=== PATIENT | female | born 1985 | race Caucasian/White ===

== ENCOUNTER 2017-01-12 11:15 | Inpatient (IN) ==
[2017-01-12] MEDS ORDERED: predniSONE 20 MG TABLET PO ONE (13:42)
[2017-01-12] MEDS ORDERED: Orphenadrine 60 MG/2 ML VIAL IM ONE (13:42)
[2017-01-12] MEDS ORDERED: *HR* Morphine 2 MG/ML SYRINGE IVP ONE (14:32)
[2017-01-12] MEDS ORDERED: Ondansetron ODT 4 MG TAB.RAPDIS SL ONE (14:32)
--- NOTE | 2017-01-12 14:32 | Emergency Department Note ---
Disposition Clinical Impression: Inability to walk Injury of spinal nerve root at S1 level Qualifiers: Encounter type: initial encounter Qualified Code(s): S34.22XA - Injury of nerve root of sacral spine, initial encounter Disposition: Admitted As Inpatient Condition: Good Referrals: Trace Donald DO [Primary Care Provider] - Forms: ED Satisfaction Letter Time of Disposition: 17:53 Back Pain HPI - General Chief Complaint: ED Back Pain/Injury Stated Complaint: Back injury Time Seen by Provider: 01/12/17 13:42 Source: patient Limitations: no limitations Nursing Notes Reviewed: Yes Vital Signs Reviewed: Yes - History of Present Illness HPI Narrative: 31 year old female with acute back pain states that she was giving her dog a haircut and bent over the wrong way and had increased acute lower back pain with numbness inot the iliotibial band of her right leg in addition to inability to bear weight due to pain and inability to walk because loss of sensation to the upper thigh and limited range of motion due to pain. Patient is tearful in the room and states that her lower back is killing her and that she cant even get up by herself to go urinate as requested. Patinet denies any previous surgeries to her back. DEnies fevers, urinary retnetion/incontinence, or sadddle paresthesia. - Related Data Home Medications Medication Instructions Recorded Confirmed Paroxetine [Paxil] 30 mg PO DAILY 01/12/17 01/12/17 Allergies Allergy/AdvReac Type Severity Reaction Status Date / Time No Known Allergies Allergy Verified 03/05/15 10:06 Constitutional: Denies: fever, chills, weakness, weight change Eyes: Denies: eye pain, eye discharge, vision change ENT ED: Denies: ear pain, throat pain, dental pain, hearing loss, epistaxis, congestion, dysphagia Cardiovascular: Denies: chest pain, palpitations, dyspnea on exertion, edema, syncope Respiratory: Denies: cough, dyspnea, wheezes, hemoptysis, stridor Gastrointestinal: Denies: abdominal pain, nausea, vomiting, diarrhea, constipation, hematemesis, melena, hematochezia Genitourinary: Denies: dysuria, frequency, hematuria, discharge Musculoskeletal: Reports: back pain. Denies: neck pain, arthralgia, myalgia Integumentary: Denies: rash, abrasion, lesions Neurological: Reports: weakness, numbness, paresthesias, abnormal gait. Denies : headache, confusion, vertigo Psychiatric: Denies: anxiety, depression, suicidal thoughts, homicidal thoughts , auditory hallucinations, visual hallucinations Endocrine: Denies: fatigue Hematological/Lymphatic: Denies: easy bleeding, easy bruising Allergic/Immunologic: Denies: facial swelling, urticaria Past Medical History - Past Medical History Medical history: Reports: diabetes Surgical history: Reports: , cholecystectomy Psychiatric history: Reports: anxiety - Social History Smoking Status: Current every day smoker Smokeless Tobacco Status: No Alcohol use: Reports: occasionally Drug use: Reports: none Physical Exam - General Limitations: no limitations General appearance: alert, other (tearful) - Head Head exam: atraumatic, normocephalic, normal inspection - Eye Eye exam: Present: normal appearance, PERRL, EOMI - Expanded Eye Exam Pupils: Left: reactive - ENT ENT exam: normal exam, normal oropharynx, mucous membranes moist - Expanded ENT Exam External ear exam: Present: normal external inspection Mouth exam: Present: normal external inspection Teeth exam: Present: normal inspection Throat exam: Present: normal inspection - Neck Neck exam: Present: normal inspection, full ROM, trachea midline - Chest Chest inspection: Present: normal inspection, symmetric chest wall rise - Respiratory Respiratory exam: Present: normal lung sounds bilaterally - Cardiovascular Cardiovascular exam: Present: normal rhythm, tachycardia, normal heart sounds - Abdominal Exam Abdominal exam: Present: soft, Non-Tender. Absent: tenderness, distention, guarding, rebound, rigidity - Extremities Exam Extremities exam: Present: normal inspection, full ROM. Absent: tenderness, pedal edema - Expanded Upper Extremity Exam Shoulder exam: Present: normal inspection, full ROM Arm exam: Present: normal inspection, full ROM Elbow exam: Present: normal inspection, full ROM Forearm/Wrist exam: Present: normal inspection, full ROM Hand exam: Present: normal inspection, full ROM Vascular exam: Normal: capillary refill, radial pulse - Expanded Lower Extremity Exam Hip/Pelvis exam: Present: normal inspection, full ROM Upper leg exam: Present: normal inspection, full ROM Knee exam: Present: normal inspection, full ROM Lower leg exam: Present: normal inspection, full ROM Ankle exam: Present: normal inspection, full ROM Foot/toe exam: Present: normal inspection, full ROM Neurovascular/Tendon exam: Absent: motor deficit, sensory deficit, tendon deficit Gait: unable to bear weight - Back Exam Back exam: Present: normal inspection, tenderness (lower lumbar), muscle spasm, paraspinal tenderness, vertebral tenderness, straight leg raise (R). Absent: full ROM - Neurological Exam Neurological exam: Present: alert, oriented X3 - Expanded Neurological Exam Patient oriented to: Present: person, place, time Speech: Present: fluid speech Cranial nerves: EOM function (II, III, IV, ): Normal, facial sensation (V): Normal, facial palsy (VII): Normal, gag reflex (IX): Normal, spinal accessory function (XI): Normal, tongue deviation (XII): Normal Cerebellar function: finger to nose: Normal Motor strength - LUE: 4/5 Motor strength - RUE: 4/5 Motor strength - LLE: 4/5 Motor strength - RLE: 3/5 Upper motor neuron exam: annalise neglect: Absent bilaterally, pronator drift: Absent bilaterally, Babinski sign: Absent bilaterally, sensory extinction: Absent bilaterally Sensory exam upper extremity: light touch: Normal, pin prick: Normal Sensory exam lower extremity: light touch: Normal, pin prick: Abnormal Right DTR: patellar (L): 2+, patellar (R): 1+, Achilles tendon (L): 2+, Achilles tendon (R): 2+ Coma Scale Eye Opening: Spontaneous Coma Scale Motor Response: Obeys Commands Coma Scale Verbal Response: Oriented Coma Scale Total: 15 - Psychiatric Psychiatric exam: Present: normal affect, normal mood - Skin Skin exam: Present: warm, dry, intact, normal color Course Course Narrative: XR shows some abnormal findings and it suggests a MR of the lumbar spine. We will continue with MR and likely admit ot azucena if Dr. Bello is willing to see erlin as consult (spine). morphine for pain control - Consultations Consultation #1: discussed case with ARNEL Schmidt and she has accepted patient to her service Time: 17:51 Vital Signs Temperature 98.1 F 01/12/17 11:19 Pulse Rate 122 01/12/17 11:19 Respiratory Rate 18 01/12/17 11:19 Blood Pressure 151/97 01/12/17 11:19 O2 Sat by Pulse Oximetry 100 01/12/17 11:19 Temperature 98.1 F 01/12/17 11:19 Pulse Rate 96 01/12/17 15:48 Respiratory Rate 16 01/12/17 15:48 Blood Pressure 121/73 01/12/17 15:48 O2 Sat by Pulse Oximetry 98 01/12/17 15:48 Oxygen Delivery Oxygen Delivery Room Air Back Pain/Injury - Lab Data Lab Results 01/12/17 01/12/17 Range/Units 15:06 15:06 Urine Color Yellow (Yellow) Urine Clarity Clear (Clear) Urine pH 6.0 (5.0-8.0) pH Units Ur Specific [place] 1.014 (1.010-1.025) Urine Protein Negative (Neg-Trace) mg/dL Urine Glucose (UA) 100 H (Normal) mg/dL Urine Ketones Negative (Negative) mg/dL Urine Blood Small H (Negative) Urine Nitrite Negative (Negative) Urine Bilirubin Negative (Negative) Urine Urobilinogen Normal (Normal) mg/dL Ur Leukocyte Esterase Negative (Negative) Urine Microscopic RBC 3-5 H (0-3) per hpf Urine Microscopic WBC 0-3 (0-3) per hpf Ur Squamous Epith Cells Few (None-Few) per lpf Urine Bacteria None Seen (None-Few) per hpf Hyaline Casts None Seen (None-Few) per lpf Ur Culture Indicated? NO (NO) Urine Test Negative (Negative)
[2017-01-12] MEDS ORDERED: *HR* Morphine 2 MG/ML SYRINGE SQ ONE (14:41)
[2017-01-12 15:12] LABS: Bilirubin,Urine Negative (Negative); Blood,Urine Small (Negative); Clarity,Urine Clear (Clear); Color,Urine Yellow (Yellow); Glucose,Urine (UA) 100 mg/dL (Normal); Ketones,Urine Negative (Negative); Leukocyte Esterase,Urine Negative (Negative); Nitrite,Urine Negative (Negative); Protein,Urine Negative (Neg-Trace); Specific Gravity,Urine 1.014 (1.010-1.025); Urobilinogen,Urine Normal (Normal)
[2017-01-12 15:14] LABS: Bacteria,Urine None Seen per hpf (None-Few); Hyaline Casts,Urine None Seen per lpf (None-Few); Squamous Epithelial Cell,Urine Few per lpf (None-Few); WBC,Urine 0-3 per hpf (0-3)
[2017-01-12] MEDS ORDERED: *HR* HYDROmorphone (PF) 1 MG/ML SYRINGE IVP ONE ×3 (17:56→20:17)
[2017-01-12] MEDS ORDERED: *HR* HYDROmorphone (PF) 1 MG/ML SYRINGE ONE (20:02)
[2017-01-12] MEDS ORDERED: Acetaminophen 325 MG TABLET PO PRN (20:58)
[2017-01-12] MEDS ORDERED: Naloxone 0.4 MG/ML INJ IVP PRN (20:58)
[2017-01-12] MEDS ORDERED: Ondansetron 4 MG/2 ML VIAL IVP PRN (20:58)
[2017-01-12 21:56] LABS: Basophils % 0.3 %; Eosinophils % 0.1 %; Hematocrit 44.4 % (35.3-44.9); Hemoglobin 15.2 g/dL (11.5-15.4); Immature Granulocytes % 0.5 % (0-4); Immature Platelets 5.4 % (1.1-6.1); Lymphocytes # 1.1 K/mcL (0.6-4.6); Lymphocytes % 9.1 %; Mean Corpuscular HGB Conc 34.2 g/dL (31.6-35.5); Mean Corpuscular Hemoglobin 29.1 pg (28.0-33.3); Mean Corpuscular Volume 85.1 fL (83.0-100.0); Mean Platelet Volume 10.4 fL (9.4-12.4); Monocytes # 0.1 K/mcL (0.0-1.3); Monocytes % 0.8 %; Neutrophils # 10.6 K/mcL (1.6-8.9); Platelet Count 242 K/mcL (140-400); Red Blood Count 5.22 M/mcL (3.82-4.97); Red Cell Distribution Width 12.1 % (11.5-14.5); Segmented Neutrophils % 89.2 %
[2017-01-12 22:01] LABS: INR 1.1
--- NOTE | 2017-01-12 22:02 | Internal Med History&Physical ---
Date of Encounter: 01/12/17 Time of Encounter: 19:35 Assessment and Plan (1) Intractable low back pain Current visit: Yes Status: Acute 1. Will treat acute pain with IV opiates and convert to oral meds as able. 2. Will add muscle relaxer and steroids. 3. Bed rest tonight with no bathroom privileges. 4. Chavira placement to alleviate urge to go to bathroom. (2) Spinal stenosis at L4-L5 level Current visit: Yes Status: Acute 1. Consult Dr. Bello for guidance and surgical evaluation. (3) DVT prophylaxis Current visit: Yes Status: Acute 1. Heparin SQ. Internal Medicine - H&P: HPI Chief complaint: back pain -- intractable Admitted From: Emergency Dept Plans for Post Hospital Care: Home History of present illness: Ms. Napier is a 31 year old female who presents with a 2-3 day history of sudden onset severe low back pain radiating to her right foot. Her pain had progressively worsened and became debilitating today. As a result, she came to the ER for evaluation. She underwent imaging of her lumbosacral spine which confirmed mild to moderate spinal canal stenosis and some degenerative disc disease. Dr. Bello was consulted and patient was admitted to the hospitalist service. I was called to see her STAT because she was lying on the ground with severe back pain. She tried to go the bathroom but experienced severe back pain that she fell to the ground and did not want to move for fear of exacerbating her pain. After some pain medication and muscle relaxer, she improved and was later moved to the bed. She denies any fevers, dysuria, nausea, or vomiting. She denies any trauma or injury to her back. She is an otherwise healthy individual. Past Med Surg Social Fam HX - Past Medical History Attestation: Yes The following information was validated with the patient. Source: patient, old records reviewed Medical history: diabetes (diet controlled -- lost 80# by diet; no meds now) Psychiatric history: anxiety - Past Surgical History Surgical History: , cholecystectomy - Social History Smoking Status: Current every day smoker Packs per day: 1pk Smokeless Tobacco Status: No Alcohol use: occasionally Drug use: none Current living situation: Home, With Family Activity Level: Independent ambulation Recent Out of Country Travel Within the Last 8 Weeks: No - Family History Father Living Status: Hx Family Cardiac Disorders: Yes (Multiple heart attacks) Hx Family Endocrine Disorder: Yes (DM) Mother Living Status: Still Living Hx Family Cardiac Disorders: Yes (Mitral Valve Prolapse) Hx Family Endocrine Disorder: Yes (DM) Internal Medicine - H&P: Meds Paroxetine [Paxil] 30 mg PO DAILY 01/12/17 [History] 3 Allergy/AdvReac Type Severity Reaction Status Date / Time No Known Allergies Allergy Verified 03/05/15 10:06 - Constitutional Constitutional: no chills, no fever(s), no night sweats - EENT Eyes: no blurry vision, no change in vision Ears: no tinnitus Nose, mouth and throat: no sinus pressure, no sore throat - Cardiovascular Cardiovascular ROS IM: no chest pain, no dyspnea, no dyspnea on exertion - Respiratory Respiratory: no cough, no dyspnea, no hemoptysis - Gastrointestinal Gastrointestinal: no abdominal pain, no diarrhea, no vomiting - Genitourinary Genitourinary: no dysuria, no flank pain, no hematuria Menstruation: period normal - Musculoskeletal Musculoskeletal ROS IM: back pain, tingling - Integumentary Integumentary IM: no rash, no jaundice - Neurological Neurological ROS: radicular pain, tingling (right leg/foot), no dizziness, no focal weakness, no frequent falls, no headache(s), no numbness Additional comments: No loss of bowel or bladder function; no numbness or paralysis - Psychiatric Psychiatric: anxiety, no depression - Endocrine Endocrine IM: no polydipsia, no polyuria - Allergic/Immunologic Allergic/Immunologic: no GI upset with certain foods - Constitutional Vitals: Temp Pulse Resp BP Pulse Ox 99.0 F 108 18 132/83 95 01/12/17 21:31 01/12/17 21:31 01/12/17 21:31 01/12/17 21:31 01/12/17 21:31 General appearance: Present: cooperative, A&O X 3, pleasant, severe distress ( due to back pain), answers questions appropriately - Head Head exam: Present: atraumatic, normal inspection - Eye Eye exam: Present: EOMI, normal appearance, PERRL. Absent: scleral icterus Pupils: Present: normal accommodation - ENT ENT exam: Present: mucous membranes moist, normal exam - Neck Neck exam general surgery: Present: full ROM, supple. Absent: tenderness, nuchal rigidity - Respiratory Respiratory exam: Present: CTAB. Absent: rales, rhonchi, wheezes - Cardiovascular Cardiovascular exam: Present: RRR, +S1, +S2. Absent: diastolic murmur, systolic murmur - GI/Abdominal GI/Abdominal exam: Present: normal bowel sounds, soft. Absent: hepatomegaly, mass, splenomegaly, tenderness - Extremities Exam Extremities exam: Present: full ROM, warm, radial pulses palpable and symmetrical. Absent: calf tenderness, joint swelling, pedal edema - Back Exam Back exam: Present: muscle spasm, tenderness (severe pain along LS spine region radiating to right hip/leg) - Neurological Exam Neurological exam: Present: alert, CN II-XII intact, oriented X3, reflexes normal (+ DTR in knees) Additional comments: mild parasthesias to right foot; no loss of bowel or bladder function - Psychiatric Psychiatric exam: Present: normal affect, normal mood - Skin Skin exam: Present: dry, warm. Absent: rash Internal Med - H&P Results - Diagnostic Studies Other Images Additional comments: MRI LS spine: report reviewed
[2017-01-12 22:03] LABS: Activated Partial Thrombo Time 30.2 Seconds (26.0-36.0)
[2017-01-12 22:08] LABS: BUN/Creatinine Ratio 13 (6-26); Blood Urea Nitrogen 11 mg/dL (7-20); Calcium 9.2 mg/dL (8.6-10.8); Carbon Dioxide 26 mEq/L (19-29); Chloride 100 mEq/L (98-109); Glucose 282 mg/dL (70-99); Osmolality,Calculated 288 (280-300); Potassium 4.5 mEq/L (3.5-4.5); Sodium 134 mEq/L (136-145); eGFR For African Americans > 60 (> 60); eGFR For Non-African Americans > 60 (> 60)
[2017-01-12] MEDS: 0.9 % Sodium Chloride 1,000 ML IVC SCH (23:03)
[2017-01-12] MEDS: *HR* Heparin 5,000 UNIT/ML VIAL SQ SCH (23:03)
[2017-01-13] MEDS: *HR* HYDROcodone/Acet 5/325 mg TABLET PO PRN ×3 (00:32→09:27)
[2017-01-13] MEDS ORDERED: D5% in Water 1,000 ML IVC PRN (02:54)
[2017-01-13] MEDS ORDERED: Dextrose Gel 15 GM PO PRN ×2 (02:54)
[2017-01-13] MEDS ORDERED: *HR* Dextrose 50 % in Water (Syg) 50 ML SYRINGE IVP PRN (02:54)
[2017-01-13] MEDS: *HR* Heparin 5,000 UNIT/ML VIAL SQ SCH ×2 (05:26→16:26)
[2017-01-13] MEDS: methylPREDNISolone 125 MG/2 ML VIAL IVP SCH ×2 (05:26→16:26)
[2017-01-13] MEDS: Insulin LISPRO 300 UNITS/3 ML VIAL SQ SCH ×4 (09:28→21:13)
[2017-01-13] MEDS: 0.9 % Sodium Chloride 1,000 ML IVC SCH (09:29)
--- NOTE | 2017-01-13 12:31 | Internal Med Progress Note ---
Date of Encounter: 01/13/17 Time of Encounter: 12:29 - Assessment and plan (1) Intractable low back pain Current Visit: Yes Status: Acute Assessment and plan: Consultation with Dr. Bello requested will continue pain medications (Dilaudid 1mg IV q3h prn severe pain and Hydrocodone/acetaminophen 10/325mg PO q6h prn moderate pain) continue systemic steroids bedrest with bedside commode pt denies any neurological deficit, no loss of bladder or bowel function MR L spine: 1. Mild multilevel degenerative disc disease and facet hypertrophy. 2. Moderate L4-5 and mild L3-4 spinal canal stenosis. 3. Mild left L2 and bilateral L4 and L5 neural foraminal narrowing. 4. Posterior L3-4 and L4-5 annular fissuring. 5. Moderate L5-S1 lateral recess narrowing with broad-based posterior disc protrusion contacting but not displacing the traversing right S1 nerve root. (2) Spinal stenosis at L4-L5 level Current Visit: Yes Status: Acute Assessment and plan: as listed above (3) DVT prophylaxis Current Visit: Yes Status: Acute Assessment and plan: Heparin SQ - Subjective Interval history: Patient seen and examined with family present at bedside. Patient resting in bed and reports of being in excruciating pain. She states she is not able to even sit up because of the severe back pain. - Constitutional Vitals: Temp Pulse Resp BP Pulse Ox 98 F 91 16 118/74 98 01/13/17 12:00 01/13/17 12:00 01/13/17 12:00 01/13/17 12:00 01/13/17 12:00 General appearance: Present: cooperative, mild distress (painful distress), A&O X 3, pleasant, obese, answers questions appropriately - Head Head exam: Present: atraumatic, normocephalic - Eye Eye exam: Present: conjuntiva pink, sclera anicteric - Respiratory Respiratory exam: Present: CTAB. Absent: accessory muscle use, rales, rhonchi, wheezes - Cardiovascular Cardiovascular exam: Present: RRR, +S1, +S2. Absent: diastolic murmur, gallop, rubs, systolic murmur - GI/Abdominal GI/Abdominal exam: Present: normal bowel sounds, soft, no peritoneal signs. Absent: distended, tenderness - Extremities Exam Extremities exam: Present: warm, radial pulses palpable and symmetrical. Absent : calf tenderness, cyanotic, pedal edema - Neurological Exam Neurological exam: Present: alert, oriented X3, strengths equal and symetr throughout. Absent: pronater drift, facial droop, speech deficit Internal Medicine: Result - Labs CBC & Chem 7: 01/12/17 21:48 01/12/17 21:48 Labs: Short CBC 01/12/17 Range/Units 21:48 WBC 11.9 H (4.3-11.1) K/mcL Hgb 15.2 (11.5-15.4) g/dL Hct 44.4 (35.3-44.9) % Plt Count 242 (140-400) K/mcL Neutrophils # 10.6 H (1.6-8.9) K/mcL BMP 01/12/17 21:48 Sodium 134 L Potassium 4.5 Chloride 100 Carbon Dioxide 26 BUN 11 Creatinine 0.86 Glucose 282 H Calcium 9.2 - ABG Interpretation ABG results: PT/INR, D-dimer PT 12.0 Seconds (9.4-12.1) 01/12/17 21:48 Consult Discharge Plan - Plan Referrals: Trace Donald DO [Primary Care Provider] -
[2017-01-13] MEDS: *HR* HYDROmorphone (PF) 1 MG/ML SYRINGE IVP PRN ×2 (12:33→23:27)
--- NOTE | 2017-01-13 14:49 | Spinal Consult Note ---
Date of Encounter: 01/13/17 Time of Encounter: 14:49 Assessment and Plan (1) Lumbar stenosis Current Visit: Yes Status: Chronic The patient is lying in bed but is quite uncomfortable with any movement of the lower extremities. Afebrile vital signs stable. She is neurovascularly intact with regard to her bilateral upper and lower extremities. Extension of the legs causes severe low back pain. Her hips move symmetrically. There is no clonus. There is no pathologic reflexes. MRI of the lumbar spine reveals a disc herniation centrally at L4-5 causing mild to moderate stenosis. There is a broad-based disc herniation L5-S1 causing right-sided foraminal stenosis. There is no other significant findings and very mild degenerative changes throughout the lumbar spine. Impression: 1) Lumbar stenosis 2) acute episode of low back pain Plan: I see no role for surgical intervention at this time. I think she will benefit from analgesics as well as muscle relaxants and I have added Valium as needed as an additional muscle relaxant. She should also start of inpatient and outpatient physical therapy for modalities and return to ambulatory status. She may benefit by referral to our interventionalists in the spine Center on an outpatient basis for consideration of lumbar epidural steroid injections. This evaluation can be scheduled for next week. History of Present Illness Chief complaint: severe back pain, intermittent numbness in lower extremities. HPI: Ms. Napier is a 31 year old female Who complains of severe back pain for the last several days which is debilitating. She says it is almost entirely back pain but she also has had intermittent numbness in the bilateral lower extremities. She said functionally this has interfered with her ability to walk. She was brought in for management due to her intractable pain via the emergency department. We are asked to see regarding possible treatment interventions. She denies any focal weakness, bowel bladder symptomatology, fevers or chills. Past Med Surg Social Fam HX - Past Medical History Medical history: diabetes (diet controlled -- lost 80# by diet; no meds now) Psychiatric history: anxiety - Past Surgical History Surgical History: , cholecystectomy - Social History Smoking Status: Current every day smoker Packs per day: 1pk Smokeless Tobacco Status: No Alcohol use: occasionally Drug use: none - Family History Father Living Status: Hx Family Cardiac Disorders: Yes (Multiple heart attacks) Hx Family Endocrine Disorder: Yes (DM) Mother Living Status: Still Living Hx Family Cardiac Disorders: Yes (Mitral Valve Prolapse) Hx Family Endocrine Disorder: Yes (DM) Medications and Allergies Paroxetine [Paxil] 30 mg PO DAILY 01/12/17 [History] 3 Allergy/AdvReac Type Severity Reaction Status Date / Time No Known Allergies Allergy Verified 03/05/15 10:06 Results - Labs Result Diagrams: 01/12/17 21:48 01/12/17 21:48 Labs: Abnormal lab results WBC 11.9 K/mcL (4.3-11.1) H 01/12/17 21:48 RBC 5.22 M/mcL (3.82-4.97) H 01/12/17 21:48 Neutrophils # 10.6 K/mcL (1.6-8.9) H 01/12/17 21:48 Sodium 134 mEq/L (136-145) L 01/12/17 21:48 Glucose 282 mg/dL (70-99) H 01/12/17 21:48 Urine Glucose (UA) 100 mg/dL (Normal) H 01/12/17 15:06 Urine Blood Small (Negative) H 01/12/17 15:06 Urine Microscopic RBC 3-5 per hpf (0-3) H 01/12/17 15:06 All other labs normal. Consult Discharge Plan - Plan Referrals: Trace Donald DO [Primary Care Provider] -
[2017-01-13] MEDS: *HR* HYDROcodone/Acet 10/325 mg TABLET PO PRN (16:25)
[2017-01-13] MEDS: diazePAM 5 MG TABLET PO PRN (16:26)
[2017-01-14] MEDS: 0.9 % Sodium Chloride 1,000 ML IVC SCH ×2 (01:48→14:23)
[2017-01-14 04:33] LABS: Basophils % 0.1 %; Hematocrit 40.2 % (35.3-44.9); Immature Granulocytes % 0.7 % (0-4); Lymphocytes % 14.2 %; Mean Corpuscular HGB Conc 33.6 g/dL (31.6-35.5); Mean Corpuscular Hemoglobin 29.2 pg (28.0-33.3); Mean Corpuscular Volume 86.8 fL (83.0-100.0); Mean Platelet Volume 10.6 fL (9.4-12.4); Monocytes # 0.7 K/mcL (0.0-1.3); Monocytes % 5.2 %; Neutrophils # 11.3 K/mcL (1.6-8.9); Platelet Count 248 K/mcL (140-400); Red Blood Count 4.63 M/mcL (3.82-4.97); Red Cell Distribution Width 11.9 % (11.5-14.5); Segmented Neutrophils % 79.8 %
[2017-01-14 04:36] LABS: Hemoglobin 13.5 g/dL (11.5-15.4)
[2017-01-14 04:51] LABS: BUN/Creatinine Ratio 21 (6-26); Blood Urea Nitrogen 17 mg/dL (7-20); Calcium 8.5 mg/dL (8.6-10.8); Carbon Dioxide 24 mEq/L (19-29); Chloride 105 mEq/L (98-109); Glucose 264 mg/dL (70-99); Osmolality,Calculated 293 (280-300); Phosphorous 2.9 mg/dL (2.3-4.7); Potassium 4.5 mEq/L (3.5-4.5); Sodium 136 mEq/L (136-145); eGFR For African Americans > 60 (> 60); eGFR For Non-African Americans > 60 (> 60)
[2017-01-14] MEDS: methylPREDNISolone 125 MG/2 ML VIAL IVP SCH (05:23)
[2017-01-14] MEDS: *HR* Heparin 5,000 UNIT/ML VIAL SQ SCH ×2 (05:23→17:14)
[2017-01-14] MEDS: *HR* HYDROmorphone (PF) 1 MG/ML SYRINGE IVP PRN (06:05)
[2017-01-14] MEDS: Insulin LISPRO 300 UNITS/3 ML VIAL SQ SCH ×4 (08:19→22:25)
[2017-01-14] MEDS: *HR* HYDROcodone/Acet 10/325 mg TABLET PO PRN ×2 (08:19→15:35)
[2017-01-14] MEDS: diazePAM 5 MG TABLET PO PRN ×2 (08:26→17:12)
--- NOTE | 2017-01-14 13:32 | Internal Med Progress Note ---
Date of Encounter: 01/14/17 Time of Encounter: 13:30 - Assessment and plan (1) Intractable low back pain Current Visit: Yes Status: Acute Assessment and plan: Consultation with Dr. Bello appreciated continue Valium as needed will continue pain medications (Dilaudid 1mg IV q3h prn severe pain and Hydrocodone/acetaminophen 10/325mg PO q6h prn moderate pain) continue systemic steroids (changed to Prednisone 20 mg qdaily) PT evaluation out of bed to chair and increase activity as tolerated pt denies any neurological deficit, no loss of bladder or bowel function MR L spine: 1. Mild multilevel degenerative disc disease and facet hypertrophy. 2. Moderate L4-5 and mild L3-4 spinal canal stenosis. 3. Mild left L2 and bilateral L4 and L5 neural foraminal narrowing. 4. Posterior L3-4 and L4-5 annular fissuring. 5. Moderate L5-S1 lateral recess narrowing with broad-based posterior disc protrusion contacting but not displacing the traversing right S1 nerve root. 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 Pt sitting in chair and reports of pain being better controlled with IV pain medications. Noted to be hyperglycemic likely secondary to steroid therapy. - Constitutional Vitals: Temp Pulse Resp BP Pulse Ox 98.0 F 88 16 109/68 92 01/14/17 11:43 01/14/17 11:43 01/14/17 11:43 01/14/17 11:43 01/14/17 11:43 General appearance: Present: cooperative, A&O X 3, pleasant, no acute distress, obese, answers questions appropriately - Head Head exam: Present: atraumatic, normocephalic - Eye Eye exam: Present: conjuntiva pink, sclera anicteric - Respiratory Respiratory exam: Present: CTAB. Absent: accessory muscle use, rales, rhonchi, wheezes - Cardiovascular Cardiovascular exam: Present: RRR, +S1, +S2. Absent: diastolic murmur, gallop, rubs, systolic murmur - GI/Abdominal GI/Abdominal exam: Present: normal bowel sounds, soft, no peritoneal signs. Absent: distended, tenderness - Extremities Exam Extremities exam: Present: warm, radial pulses palpable and symmetrical. Absent : calf tenderness - Neurological Exam Neurological exam: Present: alert, oriented X3 - Psychiatric Psychiatric exam: Present: normal affect, normal mood Internal Medicine: Result - Labs CBC & Chem 7: 01/14/17 04:09 01/14/17 04:09 Labs: Short CBC 01/14/17 Range/Units 04:09 WBC 14.2 H (4.3-11.1) K/mcL Hgb 13.5 D (11.5-15.4) g/dL Hct 40.2 (35.3-44.9) % Plt Count 248 (140-400) K/mcL Neutrophils # 11.3 H (1.6-8.9) K/mcL BMP 01/14/17 04:09 Sodium 136 Potassium 4.5 Chloride 105 Carbon Dioxide 24 BUN 17 Creatinine 0.81 Glucose 264 H Calcium 8.5 L - ABG Interpretation ABG results: PT/INR, D-dimer PT 12.0 Seconds (9.4-12.1) 01/12/17 21:48 Consult Discharge Plan - Plan Referrals: Trace Donald, [Primary Care Provider] -
[2017-01-15] MEDS: diazePAM 5 MG TABLET PO PRN (02:30)
[2017-01-15 05:57] LABS: Basophils % 0.3 %; Eosinophils # 0.1 K/mcL (0.0-0.6); Eosinophils % 0.8 %; Hematocrit 38.5 % (35.3-44.9); Hemoglobin 12.9 g/dL (11.5-15.4); Immature Granulocytes % 0.6 % (0-4); Lymphocytes # 3.8 K/mcL (0.6-4.6); Lymphocytes % 34.9 %; Mean Corpuscular HGB Conc 33.5 g/dL (31.6-35.5); Mean Corpuscular Hemoglobin 29.1 pg (28.0-33.3); Mean Corpuscular Volume 86.9 fL (83.0-100.0); Mean Platelet Volume 10.3 fL (9.4-12.4); Monocytes # 0.8 K/mcL (0.0-1.3); Neutrophils # 6.1 K/mcL (1.6-8.9); Platelet Count 213 K/mcL (140-400); Red Blood Count 4.43 M/mcL (3.82-4.97); Red Cell Distribution Width 12.1 % (11.5-14.5); Segmented Neutrophils % 56.4 %
[2017-01-15 06:11] LABS: BUN/Creatinine Ratio 24 (6-26); Blood Urea Nitrogen 18 mg/dL (7-20); Calcium 8.1 mg/dL (8.6-10.8); Carbon Dioxide 24 mEq/L (19-29); Chloride 107 mEq/L (98-109); Glucose 188 mg/dL (70-99); Magnesium 1.8 mg/dL (1.6-2.6); Osmolality,Calculated 293 (280-300); Phosphorous 3.2 mg/dL (2.3-4.7); Potassium 3.9 mEq/L (3.5-4.5); Sodium 138 mEq/L (136-145); eGFR For African Americans > 60 (> 60); eGFR For Non-African Americans > 60 (> 60)
[2017-01-15] MEDS: *HR* Heparin 5,000 UNIT/ML VIAL SQ SCH (06:12)
--- NOTE | 2017-01-15 08:00 | Orthopedics Progress Note ---
Date of Encounter: 01/15/17 Time of Encounter: 08:00 Subjective Interval history: Patient seen doing well no complaints plan for discharge today Objective Vital signs: Vital Signs Temp Pulse Resp BP Pulse Ox 01/15/17 00:00 98.0 F 16 104/68 97 01/14/17 19:57 98.1 F 67 17 104/66 97 01/14/17 16:07 98.0 F 78 14 110/71 99 01/14/17 11:43 98.0 F 88 16 109/68 92 Intake and Output 01/14/17 01/15/17 01/15/17 23:59 07:59 15:59 Intake Total 2160 / 2160 Balance 2160 / 2160 Intake: Oral 2160 / 2160 Other: Meal Dinner Percent of Meal Consumed 100% # Voids 1 Blood Glucose* 220 - Labs CBC & BMP: 01/15/17 05:36 01/15/17 05:36 Labs: Abnormal lab results Glucose 188 mg/dL (70-99) H 01/15/17 05:36 POC Glucose 220 (58-89) H 01/14/17 20:15 Calcium 8.1 mg/dL (8.6-10.8) L 01/15/17 05:36 Urine Glucose (UA) 100 mg/dL (Normal) H 01/12/17 15:06 Urine Blood Small (Negative) H 01/12/17 15:06 Urine Microscopic RBC 3-5 per hpf (0-3) H 01/12/17 15:06 Consult Discharge Plan - Plan Referrals: Trace Donald DO [Primary Care Provider] -
[2017-01-15] MEDS ORDERED: predniSONE 20 MG TABLET PO SCH (09:00)
[2017-01-15] MEDS: Insulin LISPRO 300 UNITS/3 ML VIAL SQ SCH ×2 (10:08→12:55)
[2017-01-15 12:49] VITALS: BP 104/67
--- NOTE | 2017-01-15 12:49 | Discharge Summary ---
Date of Encounter: 01/15/17 Time of Encounter: 12:47 - Discharge Diagnosis (1) Intractable low back pain Priority: Primary Status: Acute (2) Spinal stenosis at L4-L5 level Priority: Primary Status: Acute (3) DVT prophylaxis Priority: Secondary Status: Acute (4) Diabetes mellitus Priority: Secondary Status: Chronic Comments: patient states she is aware of her DM and is currently making lifestyle modifications for her BG control and she has discussed this with her PCP She does not wish to continue on any oral antihyperglycemic upon discharge until her follow up with her PCP. Qualifiers: Diabetes mellitus type: type 2 Diabetes mellitus complication status: with unspecified complications Diabetes mellitus skilled nursing insulin use: without terminal manager use Qualified Code(s): E11.8 - Type 2 diabetes mellitus with unspecified complications - Discharge Medications Prescriptions: Cyclobenzaprine [Flexeril] 10 mg PO TID PRN #30 tab PRN Reason: back spasm diazePAM [Valium] 5 mg PO TID PRN #30 tab PRN Reason: Spasms predniSONE [PredniSONE] 20 mg PO DAILY #2 tablet Home Medications: Paroxetine [Paxil] 30 mg PO DAILY 01/12/17 [History] Cyclobenzaprine [Flexeril] 10 mg PO TID PRN #30 tab 01/15/17 [Rx] diazePAM [Valium] 5 mg PO TID PRN #30 tab 01/15/17 [Rx] predniSONE [PredniSONE] 20 mg PO DAILY #2 tablet 01/15/17 [Rx] Allergies/Adverse Reactions: 3 Allergy/AdvReac Type Severity Reaction Status Date / Time No Known Allergies Allergy Verified 03/05/15 10:06 Date of admission: 01/13/17 14:16 Primary care physician: Trace Donald DO Consults: 01/14/17 08:21 PT [Consult to Physical Therapy] [CONS] Stat Comment: Evaluate, develop and implement POC Reason for Consult: severe back pain, needs physical therapy Discharging clinician: Kourtney Victor Anticipated date of discharge: 01/15/17 - Patient Status Disposition: Home, Self-Care Condition: Good Functional capacity at discharge: independent ambulation Overall status at discharge: patient is progressing back to baseline - Discharge Instructions Follow Up With: Trace Donald DO [Primary Care Provider] - Additional Instructions: Please follow up with your primary care physician and spine center within one week after your discharge from the hospital. Please ask your primary care physician about a referral to the Spine center for lumbar epidural steroid injections. Please continue muscle spasm medications as needed. Please do not drive while taking these medications. Please discuss the status of your diabetes with your primary care physician. Please resume all your home medications as prescribed by your primary care physician. - Diet and Activity Activity: increase activity as tolerated Diet: diabetic diet Hospital course: Ms. Napier is a 31 year old female with PMH Of DM, obesity who was admitted for severe low back pain. She was found to have L4-5spinal stenosis for which Dr. Bello was consulted. Conservative management was recommended and outpatient follow up for spinal steroid injections were recommended. Patient was started on systemic steroids, valium, and flexeril with better pain control. At this time she reports of feeling better and pain being tolerable. Pt is to continue outpatient physical therapy. She is hemodynamically stable and will be discharged to home today. Patient and her (present at bedside) demonstrate understanding of his diagnosis and agree with the discharge care and plan. - Time Spent with Patient Total time spent providing and/or coordinating discharge services: Less than 30 minutes - Constitutional Vitals: Temp Pulse Resp BP Pulse Ox 98.0 F 67 16 104/68 97 01/15/17 00:00 01/14/17 19:57 01/15/17 00:00 01/15/17 00:00 01/15/17 00:00 General appearance: Present: cooperative, A&O X 3, pleasant, no acute distress, obese, answers questions appropriately - Head Head exam: Present: atraumatic, normocephalic - Eye Eye exam: Present: conjuntiva pink, sclera anicteric - Respiratory Respiratory exam: Present: CTAB. Absent: accessory muscle use, rales, rhonchi, wheezes - Cardiovascular Cardiovascular exam: Present: RRR, +S1, +S2. Absent: diastolic murmur, gallop, rubs, systolic murmur - GI/Abdominal GI/Abdominal exam: Present: normal bowel sounds, soft, no peritoneal signs. Absent: distended, tenderness - Extremities Exam Extremities exam: Present: warm, radial pulses palpable and symmetrical. Absent : calf tenderness, cyanotic, pedal edema - Neurological Exam Neurological exam: Present: alert, oriented X3
[2017-01-15] MEDS: *HR* HYDROcodone/Acet 10/325 mg TABLET PO PRN (12:58)
== END 2017-01-15 15:19 | disposition home or self-care (01) | DRG 347 ==
LOC: 3NENU 11:15 → EMEROO 11:15 → 3NENU 19:31
PROVIDERS: ADMIT Internal Medicine; ATTEND Internal Medicine